=== PATIENT | male | born 1990 | race Hispanic/Latino ===

== ENCOUNTER 2023-02-21 04:22 | Emergency (ER) | payer SELFPAY ==
[2023-02-21] MEDS ORDERED: LORazepam 2 MG/ML SYR.(CARPUJECT) ONE (04:40)
== END 2023-02-21 05:22 | disposition home or self-care (01) ==
LOC: ERS 04:22
DX: F15.10 Other stimulant abuse, uncomplicated (principal)
CPT/HCPCS: 93005; 96372; J2060